=== PATIENT | female | born 2005 | race Caucasian/White ===

== ENCOUNTER 2025-02-11 13:09 | Outpatient (CLI) | payer BC, OTHER, SELFPAY ==
[2025-02-11 14:42] LABS: Chloride* 102 mmol/L (96-114)
[2025-02-11 14:43] LABS: Albumin* 4.6 g/dL (3.3-5.0); Potassium* 4.3 mmol/L (3.6-5.1); Sodium* 136 mmol/L (135-149)
[2025-02-11 14:46] LABS: Alanine Aminotransferase* 13 U/L (4-35); Alkaline Phosphatase* 84 U/L (40-150); Anion Gap 9 mEq/L (7-15); Aspartate Amino Transferase* 25 U/L (12-35); Bilirubin Total* 0.4 mg/dL (0.1-1.5); Blood Urea Nitrogen* 11 mg/dL (5-24); Calcium* 9.5 mg/dL (8.7-10.8); Carbon Dioxide* 25 mmol/L (20-32); Creatinine* 0.6 mg/dL (0.6-1.2); Estimated Glomerular Filt Rate 133 ml/min; Glucose* 82 mg/dL (60-115); Total Protein* 7.5 g/dL (6.0-8.3)
== END 2025-02-11 13:10 | disposition home or self-care (01) ==
LOC: NPINS 13:11
PROVIDERS: Visit Provider Internal Medicine Endocrinology, Diabetes & Metabolism
DX: E05.00 Thyrotoxicosis with diffuse goiter without thyrotoxic crisis or storm (principal)
CPT/HCPCS: 80053

== ENCOUNTER 2025-04-08 15:26 | Outpatient (CLI) | payer BC, OTHER, SELFPAY ==
[2025-04-12 19:59] LABS: Alkaline Phosphatase* 91 U/L (40-150)
[2025-04-12 20:00] LABS: Free T4 Free Thyroxine* 1.21 ng/dL (0.70-1.85)
[2025-04-14 18:49] LABS: Free T3 2.9 pg/mL (2.5-4.3)
== END 2025-04-08 15:27 | disposition home or self-care (01) ==
PROVIDERS: Visit Provider Internal Medicine Endocrinology, Diabetes & Metabolism
DX: E05.00 Thyrotoxicosis with diffuse goiter without thyrotoxic crisis or storm (principal)
CPT/HCPCS: 80053; 84075; 84439; 84443; 84481